=== PATIENT | male | born 1970 | race Caucasian/White ===

== ENCOUNTER 2018-02-17 00:32 | Inpatient (IN) ==
[2018-02-17 02:06] LABS: Basophils % 0.3 % (0.0-0.8); Eosinophils % 0.3 % (0.00-10.9); Hematocrit 44.1 VOL% (42.0-52.0); Hemoglobin 14.7 GM/DL (14.0-18.0); Immature Granulocytes % 0.3 %; Immature Granulocytes Absolute 0.03 #; Mean Corpuscular HGB Conc 33.3 GM/DL (32-36); Mean Corpuscular Hemoglobin 30 PG (27-34); Mean Corpuscular Volume 90.4 FL (87-102); Mean Platelet Volume 8.8 FL (9.6-12.0); Neutrophils # 7.6 10*3/uL (1.4-7.4); Neutrophils % 79.1 % (38.7-73.9); Platelet Count 233 T/CUMM (130-400); Red Blood Count 4.88 MC/CUMM (3.8-5.5); Red Cell Distribution Width 13.2 % (9.3-17.3); White Blood Count 9.6 T/CUMM (4-12)
[2018-02-17 02:13] LABS: INR 1.1; PT Patient Result 11.6 SECS
[2018-02-17 02:27] LABS: Albumin 3.3 G/DL (3.4-5.0); Bilirubin,Total 2.2 MG/DL (0.2-1.0); Calcium 8.3 MG/DL (8.5-10.1); Osmolality,Calculated 268.5 MOS/KG (273-304); Potassium 4.3 MMOL/L (3.5-5.1); Total Protein 8.6 G/DL (6.4-8.3)
[2018-02-17 03:14] LABS: Sedimentation Rate-Westergren 31 MM/HR (0-15)
[2018-02-17 06:38] LABS: Calcium 8.7 MG/DL (8.5-10.1); Osmolality,Calculated 269.2 MOS/KG (273-304); Potassium 3.7 MMOL/L (3.5-5.1)
[2018-02-18 05:23] LABS: Basophils % 0.4 % (0.0-0.8); Eosinophils # 0.1 10*3/uL (0.0-0.87); Eosinophils % 1.7 % (0.00-10.9); Hematocrit 37.1 VOL% (42.0-52.0); Immature Granulocytes % 0.2 %; Immature Granulocytes Absolute 0.01 #; Lymphocytes # 1.1 10*3/uL (1.4-4.0); Mean Corpuscular HGB Conc 32.6 GM/DL (32-36); Mean Corpuscular Hemoglobin 30 PG (27-34); Mean Corpuscular Volume 91.6 FL (87-102); Mean Platelet Volume 9.1 FL (9.6-12.0); Monocytes # 0.8 10*3/uL (0.11-0.8); Monocytes % 15.7 % (1.7-12.7); Neutrophils # 3.2 10*3/uL (1.4-7.4); Platelet Count 201 T/CUMM (130-400); Red Blood Count 4.05 MC/CUMM (3.8-5.5); Red Cell Distribution Width 13.2 % (9.3-17.3)
[2018-02-18 05:37] LABS: Hemoglobin 12.1 GM/DL (14.0-18.0); White Blood Count 5.3 T/CUMM (4-12)
[2018-02-18 05:49] LABS: Hypochromasia 1+; Platelet Estimate Adequate
[2018-02-18 05:51] LABS: Calcium 7.8 MG/DL (8.5-10.1); Osmolality,Calculated 276.8 MOS/KG (273-304); Potassium 4.2 MMOL/L (3.5-5.1)
[2018-02-20 04:51] LABS: Basophils % 0.3 % (0.0-0.8); Eosinophils # 0.1 10*3/uL (0.0-0.87); Eosinophils % 3.4 % (0.00-10.9); Hematocrit 34.6 VOL% (42.0-52.0); Hemoglobin 11.4 GM/DL (14.0-18.0); Immature Granulocytes % 0.3 %; Immature Granulocytes Absolute 0.01 #; Lymphocytes # 0.8 10*3/uL (1.4-4.0); Lymphocytes % 21.1 % (21.2-54.2); Mean Corpuscular HGB Conc 32.9 GM/DL (32-36); Mean Corpuscular Hemoglobin 30 PG (27-34); Mean Corpuscular Volume 91.3 FL (87-102); Mean Platelet Volume 8.9 FL (9.6-12.0); Monocytes # 0.7 10*3/uL (0.11-0.8); Neutrophils # 2.2 10*3/uL (1.4-7.4); Neutrophils % 56.9 % (38.7-73.9); Platelet Count 198 T/CUMM (130-400); Red Blood Count 3.79 MC/CUMM (3.8-5.5); White Blood Count 3.8 T/CUMM (4-12)
[2018-02-20 05:27] LABS: Albumin 2.4 G/DL (3.4-5.0); Bilirubin,Total 1.2 MG/DL (0.2-1.0); Osmolality,Calculated 271.7 MOS/KG (273-304); Potassium 4.2 MMOL/L (3.5-5.1); Total Protein 6.4 G/DL (6.4-8.3)
[2018-02-20 09:44] LABS: Band Neutrophils 20 % (0-10); Eosinophils 8 % (0-10); Lymphocytes 14 % (20-55); Platelet Estimate Normal; Schistocytes Slight; Segmented Neutrophils 33 % (50-85); Total Cells Counted 100
[2018-02-21 07:27] VITALS: BP 150/90
== END 2018-02-21 11:07 | disposition home or self-care (01) | DRG 137 ==
LOC: N.ED 00:32 → N.EDINP 00:32 → N.3E 05:01 → SUATTDRO 14:46
PROVIDERS: ADMIT Hospitalist; ATTEND Internal Medicine

== ENCOUNTER 2019-07-27 05:29 | Inpatient (IN) ==
[2019-07-27] MEDS ORDERED: SODIUM CHLORIDE 0.9% 1,000 ML IV STA ×2 (06:02→08:13)
[2019-07-27] MEDS ORDERED: HYDROmorphone 2 MG/1 ML VIAL IV STA ×2 (06:02→08:20)
[2019-07-27] MEDS ORDERED: ONDANSETRON 4 MG/2 ML VIAL IV STA (06:02)
[2019-07-27] MEDS ORDERED: PANTOPRAZOLE 40 MG VIAL IV STA (06:02)
[2019-07-27 06:18] LABS: Basophils % 0.2 % (0.0-0.8); Eosinophils % 0.2 % (0.00-10.9); Hematocrit 51.1 VOL% (42.0-52.0); Hemoglobin 17.5 GM/DL (14.0-18.0); Immature Granulocytes % 0.4 %; Immature Granulocytes Absolute 0.04 #; Lymphocytes # 1.4 10*3/uL (1.4-4.0); Lymphocytes % 14.3 % (21.2-54.2); Mean Corpuscular HGB Conc 34.2 GM/DL (32-36); Mean Platelet Volume 9.2 FL (9.6-12.0); Monocytes % 5.8 % (1.7-12.7); Neutrophils % 79.1 % (38.7-73.9); Platelet Count 231 T/CUMM (130-400); Red Blood Count 5.68 MC/CUMM (3.8-5.5); Red Cell Distribution Width 12.6 % (9.3-17.3); White Blood Count 10.1 T/CUMM (4-12)
[2019-07-27 06:38] LABS: Alanine Aminotransferase 29 U/L (16-61); Albumin 3.6 G/DL (3.4-5.0); Alkaline Phosphatase 119 U/L (45-117); Aspartate Amino Transferase 19 U/L (0-37); Blood Urea Nitrogen 9 MG/DL (7-18); Calcium 8.5 MG/DL (8.5-10.1); Estimated Glom Filtration Rate 67 ML/MIN; Glucose 420 MG/DL (74-106); Osmolality,Calculated 276.8 MOS/KG (273-304); Total Protein 8.3 G/DL (6.4-8.3)
[2019-07-27 07:34] LABS: Apearance,Urine CLEAR (Clear); Bilirubin,Urine Negative (Negative); Blood, Urine Negative (Negative); Glucose,Urine (UA) >=500 mg/dL (Negative); Ketones,Urine Negative (Negative); Nitrite,Urine Negative (Negative); Protein,Urine Negative; RBC,Urine <1 /HPF (0-4); Urine Color Straw (Yellow); Urine Specific Gravity 1.041 (1.001-1.035); Urine Urobilinogen < 2.0 EU/DL (0.2-1.0); WBC,Urine <1 /HPF (0-6)
[2019-07-27] MEDS ORDERED: ALBUTEROL/IPRATROPIUM 3 ML NEB RESP TX PRN (10:24)
[2019-07-27] MEDS ORDERED: ACETAMINOPHEN 325 MG TABLET PO PRN (10:24)
[2019-07-27] MEDS ORDERED: BISACODYL 5 MG TABLET PO PRN (10:24)
[2019-07-27] MEDS ORDERED: PROMETHAZINE 25 MG TABLET PO PRN (11:08)
[2019-07-27] MEDS ORDERED: traMADol 50 MG TABLET PO PRN (11:08)
[2019-07-27] MEDS ORDERED: INSULIN GLARGINE 100 UNIT/ML SUBCUT PRN (11:08)
[2019-07-27] MEDS ORDERED: GLUCAGON 1 MG VIAL IM PRN (11:10)
[2019-07-27] MEDS ORDERED: DEXTROSE 10% 25 GM/250 ML BAG IV PRN (11:10)
[2019-07-27] MEDS ORDERED: hydrALAZINE 20 MG/1 ML VIAL IV PRN (11:10)
[2019-07-27] MEDS: INSULIN LISPRO 100 UNIT/ML SUBCUT SCH ×2 (14:12→17:48)
[2019-07-27] MEDS: BISACODYL 5 MG TABLET PO SCH (14:26)
[2019-07-27] MEDS: ENOXAPARIN 40 MG/0.4 ML SYRINGE SUBCUT SCH (14:27)
[2019-07-27] MEDS: LACTATED RINGERS 1,000 ML IV SCH ×2 (14:28→23:41)
[2019-07-27] MEDS: HYDROmorphone 2 MG/1 ML VIAL IV PRN ×2 (16:14→20:20)
[2019-07-27] MEDS: ONDANSETRON 4 MG/2 ML VIAL IV PRN (16:27)
[2019-07-27] MEDS: VENLAFAXINE 100 MG TABLET PO SCH (20:19)
[2019-07-27] MEDS: PANTOPRAZOLE 40 MG TABLET PO SCH (20:19)
[2019-07-28] MEDS: HYDROmorphone 2 MG/1 ML VIAL IV PRN ×9 (00:17→22:07)
[2019-07-28] MEDS: INSULIN LISPRO 100 UNIT/ML SUBCUT SCH ×4 (00:21→17:51)
[2019-07-28] MEDS: ONDANSETRON 4 MG/2 ML VIAL IV PRN ×5 (00:31→20:08)
[2019-07-28 05:05] LABS: Basophils % 0.3 % (0.0-0.8); Eosinophils # 0.1 10*3/uL (0.0-0.87); Eosinophils % 0.9 % (0.00-10.9); Hematocrit 42.7 VOL% (42.0-52.0); Hemoglobin 14.6 GM/DL (14.0-18.0); Immature Granulocytes % 0.3 %; Immature Granulocytes Absolute 0.02 #; Lymphocytes # 1.4 10*3/uL (1.4-4.0); Lymphocytes % 18.7 % (21.2-54.2); Mean Corpuscular HGB Conc 34.2 GM/DL (32-36); Mean Corpuscular Volume 89.3 FL (87-102); Monocytes % 7.9 % (1.7-12.7); Neutrophils % 71.9 % (38.7-73.9); Platelet Count 187 T/CUMM (130-400); Red Blood Count 4.78 MC/CUMM (3.8-5.5); Red Cell Distribution Width 12.4 % (9.3-17.3); White Blood Count 7.4 T/CUMM (4-12)
[2019-07-28 05:32] LABS: Albumin 2.9 G/DL (3.4-5.0); Bilirubin,Total 2.3 MG/DL (0.2-1.0); Calcium 7.9 MG/DL (8.5-10.1); Total Protein 6.5 G/DL (6.4-8.3)
[2019-07-28] MEDS: ENOXAPARIN 40 MG/0.4 ML SYRINGE SUBCUT SCH (08:38)
[2019-07-28] MEDS: VENLAFAXINE 100 MG TABLET PO SCH ×2 (08:38→20:15)
[2019-07-28] MEDS: PANTOPRAZOLE 40 MG TABLET PO SCH ×2 (08:38→20:15)
[2019-07-28] MEDS: INSULIN GLARGINE 100 UNIT/ML SUBCUT SCH (08:39)
[2019-07-28] MEDS ORDERED: PANTOPRAZOLE 40 MG TABLET PO SCH (09:00)
[2019-07-28] MEDS: BISACODYL 5 MG TABLET PO SCH (11:42)
[2019-07-28] MEDS: LACTATED RINGERS 1,000 ML IV SCH ×3 (12:07→20:16)
[2019-07-28] MEDS ORDERED: MAGNESIUM SULF RIDER 4 GM in PREMIX 1 EACH IV PRN (13:40)
[2019-07-28] MEDS ORDERED: MAGNESIUM SULF RIDER 2 GM in PREMIX 1 EACH IV PRN (13:40)
[2019-07-28] MEDS: POLYETHYLENE GLYCOL POWDER 17 GM PACK PO SCH ×2 (15:31→20:15)
[2019-07-29] MEDS: INSULIN LISPRO 100 UNIT/ML SUBCUT SCH ×3 (00:08→11:30)
[2019-07-29] MEDS: ONDANSETRON 4 MG/2 ML VIAL IV PRN ×3 (00:08→09:07)
[2019-07-29] MEDS: HYDROmorphone 2 MG/1 ML VIAL IV PRN ×5 (00:10→09:10)
[2019-07-29] MEDS: LACTATED RINGERS 1,000 ML IV SCH ×2 (05:18→11:30)
[2019-07-29 07:53] VITALS: BP 150/80
[2019-07-29 09:32] LABS: Calcium 8.3 MG/DL (8.5-10.1); Osmolality,Calculated 265.2 MOS/KG (273-304)
[2019-07-29] MEDS: INSULIN GLARGINE 100 UNIT/ML SUBCUT SCH (11:29)
[2019-07-29] MEDS: ENOXAPARIN 40 MG/0.4 ML SYRINGE SUBCUT SCH (11:29)
[2019-07-29] MEDS: POLYETHYLENE GLYCOL POWDER 17 GM PACK PO SCH (11:29)
[2019-07-29] MEDS: VENLAFAXINE 100 MG TABLET PO SCH (11:29)
[2019-07-29] MEDS: BISACODYL 5 MG TABLET PO SCH (11:29)
[2019-07-29] MEDS: PANTOPRAZOLE 40 MG TABLET PO SCH (11:30)
== END 2019-07-29 11:36 | disposition home or self-care (01) | DRG 392 ==
LOC: N.ED 05:29 → N.EDINP 10:24 → N.3E 11:29
PROVIDERS: ADMIT Surgery; ATTEND Surgery